=== PATIENT | female | born 1945 | race Caucasian/White ===

== ENCOUNTER 2017-05-06 07:27 | Outpatient (CLI) | payer OTHER ==
[~2017-05-06] VITALS: Ht 163.8 cm; Wt 108.0 kg
[~2017-05-06 07:27] MED LIST: ATOR1TAB19 PO; CALC1TAB42 PO; HYDR-3713 PO; LISI20TA PO; LOPR1TAB6 PO; MAGN500T5 PO; METH1TAB40 PO; MULT1TAB10 PO; TYLE1TAB5 PO; VENL75TA2 PO; VITA500046 PO; VITA500T53 PO
[2017-05-06] MEDS ORDERED: NS 1,000 ML IV ONE (07:45)
--- NOTE | 2017-05-06 09:12 | ROOR ---
Patient Name: Starla Garcia Procedure Date: 05/06/2017 8:52 AM Date of : 1945 Age: 72 Room: [facility] Gender: Female Note Status: Finalized Procedure: Colonoscopy Indications: High risk colon cancer surveillance: Personal history of colonic polyps Providers: Dhiraj CAMARILLO MD Referring MD: PRETTY ORTEGA NP Requesting Provider: Medicines: Monitored Anesthesia Care Complications: No immediate complications. Procedure: Pre-Anesthesia Assessment: - The heart rate, respiratory rate, oxygen saturations, blood pressure, adequacy of pulmonary ventilation, and response to care were monitored throughout the procedure. The Colonoscope was introduced through the anus and advanced to the cecum, identified by appendiceal orifice and ileocecal valve. The colonoscopy was performed without difficulty. The patient tolerated the procedure well. The quality of the bowel preparation was good. Findings: The perianal and digital rectal examinations were normal. (Exam: Complete, Prep: Good or Excellent.) Five sessile polyps were found in the sigmoid colon and distal descending colon. The polyps were 4 to 7 mm in size. These polyps were removed with a cold snare. Resection and retrieval were complete. Multiple medium-mouthed diverticula were found in the sigmoid colon. Small Internal Hemorrhoids. The exam was otherwise without abnormality on direct and retroflexion views. Impression: - Five 4 to 7 mm polyps in the sigmoid colon and in the distal descending colon, removed with a cold snare. Resected and retrieved. - Mild diverticulosis in the sigmoid colon. - Small Internal Hemorrhoids. - The examination was otherwise normal on direct and retroflexion views. Recommendation: - Repeat colonoscopy in 3 years for surveillance. Dhiraj Camarillo MD Dhiraj CAMARILLO MD 05/06/2017 9:12:21 AM This report has been signed electronically. Number of Addenda: 0 Note Initiated On: 05/06/2017 8:52 AM Estimated Blood Loss: Estimated blood loss: none.
[2017-05-06 09:30] VITALS: BP 142/84
== END 2017-05-06 09:43 | disposition home or self-care (01) ==
LOC: M OPP 07:27
PROVIDERS: ATTEND Internal Medicine Gastroenterology
DX: D12.5 Benign neoplasm of sigmoid colon (principal); D12.2 Benign neoplasm of ascending colon; K64.8 Other hemorrhoids; I10 Essential (primary) hypertension; M54.9 Dorsalgia, unspecified; E78.5 Hyperlipidemia, unspecified; M19.90 Unspecified osteoarthritis, unspecified site; Z98.0 Intestinal bypass and anastomosis status; Z96.9 Presence of functional implant, unspecified; Z79.899 Other long term (current) drug therapy

== ENCOUNTER → 2017-11-14 | Outpatient (REF) | payer OTHER ==
[2017-11-14 17:01] LABS: FERRITIN 33 NG/ML (8-252); IRON (FE) 111 UG/DL (50-170); PERCENT SATURATION 27.3 % (13.2-45.0); TOTAL IRON BINDING CAPACITY 406 UG/DL (250-450)
[2017-11-14 21:19] LABS: FOLATE > 24.0 NG/ML; VITAMIN B12 LEVEL 1407 PG/ML
== END ==
LOC: M LAB REF 15:18
DX: Z98.84 Bariatric surgery status (principal)
CPT/HCPCS: 82746

== ENCOUNTER → 2018-11-20 | Outpatient (REF) | payer OTHER ==
[2018-11-20 12:38] LABS: FERRITIN 18 NG/ML (8-252); IRON (FE) 55 UG/DL (50-170); PERCENT SATURATION 15.4 % (13.2-45.0); TOTAL IRON BINDING CAPACITY 356 UG/DL (250-450)
[2018-11-20 12:41] LABS: VITAMIN B12 LEVEL 1737 PG/ML
[2018-11-20 12:54] LABS: FOLATE > 24.0 NG/ML
== END ==
LOC: M LAB REF 12:00
PROVIDERS: ATTEND Nurse Practitioner Family
DX: Z98.84 Bariatric surgery status (principal)

== ENCOUNTER → 2020-07-27 | Outpatient (CLI) | payer OTHER ==
[~2020-07-27] MED LIST changes: -LISI20TA PO; +LISI20TA35 PO; +MAGN1CAP PO; +MULTCAP PO; +VITA500T17 PO; -VITA500T53 PO
== END ==
LOC: M LABSMTC 08:40
PROVIDERS: ATTEND Anesthesiology
DX: Z01.812 Encounter for preprocedural laboratory examination (principal); Z20.828 Contact with and (suspected) exposure to other viral communicable diseases
CPT/HCPCS: C9803; U0003

== ENCOUNTER 2020-08-01 09:03 | Day surgery (SDC) | payer MEDICARE ==
[~2020-08-01] VITALS: Ht 162.6 cm; Wt 112.0 kg
[~2020-08-01 09:03] MED LIST changes: +LIDOCAINE 2% 100MG/5ML SDV (FOR ANES.) As Ordered ONE; +NS 1,000 ML IV ONE; +propofoL 200 MG/20 ML VIAL As Ordered ONE
--- NOTE | 2020-08-01 10:25 | ROOR ---
Patient Name: Starla Garcia Procedure Date: 08/01/2020 10:09 AM Date of : 1945 Age: 75 Room: [facility] Gender: Female Note Status: Finalized Procedure: Colonoscopy Indications: High risk colon cancer surveillance: Personal history of colonic polyps, Last colonoscopy: May 2017 Providers: Dhiraj CAMARILLO MD Referring MD: Gloria Brasher NP Requesting Provider: Medicines: Monitored Anesthesia Care Complications: No immediate complications. Procedure: Pre-Anesthesia Assessment: - The heart rate, respiratory rate, oxygen saturations, blood pressure, adequacy of pulmonary ventilation, and response to care were monitored throughout the procedure. The Colonoscope was introduced through the anus and advanced to the terminal ileum, with identification of the appendiceal orifice and IC valve. The colonoscopy was performed without difficulty. The patient tolerated the procedure well. The quality of the bowel preparation was good. Findings: The perianal and digital rectal examinations were normal. Mild sigmoid diverticulosis and small internal hemorrhoids. The exam was otherwise without abnormality on direct and retroflexion views. Impression: - Mild sigmoid diverticulosis and small internal hemorrhoids. - The examination was otherwise normal on direct and retroflexion views. - No specimens collected. Recommendation: - Repeat colonoscopy in 5 years for surveillance. Dhiraj Camarillo MD Dhiraj CAMARILLO MD 08/01/2020 10:24:55 AM Electronically signed by hDiraj CAMARILLO MD Number of Addenda: 0 Note Initiated On: 08/01/2020 10:09 AM Estimated Blood Loss: Estimated blood loss: none.
[2020-08-01 11:09] VITALS: BP 145/77
== END 2020-08-01 11:07 | disposition home or self-care (01) ==
LOC: M OPP 09:03
PROVIDERS: ATTEND Internal Medicine Gastroenterology
DX: Z12.11 Encounter for screening for malignant neoplasm of colon (principal); Z86.010 Personal history of colon polyps; K57.30 Diverticulosis of large intestine without perforation or abscess without bleeding; K64.8 Other hemorrhoids; Z79.891 Long term (current) use of opiate analgesic; Z79.899 Other long term (current) drug therapy; Z98.84 Bariatric surgery status

== ENCOUNTER → 2020-12-05 | Outpatient (REF) | payer MEDICARE ==
[~2020-12-05] MED LIST changes: -LIDOCAINE 2% 100MG/5ML SDV (FOR ANES.) As Ordered ONE; +METH-1164 PO; -METH1TAB40 PO; -NS 1,000 ML IV ONE; -propofoL 200 MG/20 ML VIAL As Ordered ONE
[2020-12-05 13:01] LABS: FERRITIN 24 NG/ML (8-252); IRON (FE) 46 UG/DL (50-170); PERCENT SATURATION 11.6 % (13.2-45.0); TOTAL IRON BINDING CAPACITY 397 UG/DL (250-450)
[2020-12-05 13:08] LABS: FOLATE > 24.0 NG/ML; VITAMIN B12 LEVEL > 2000 PG/ML
== END ==
LOC: M LAB REF 12:27
PROVIDERS: ATTEND Internal Medicine
DX: Z98.84 Bariatric surgery status (principal)

== ENCOUNTER → 2021-06-25 | Outpatient (CLI) | payer MEDICARE | LOC: M PAIN 09:00 | PROVIDERS: ATTEND Anesthesiology | DX: M47.816 Spondylosis without myelopathy or radiculopathy, lumbar region (principal); I10 Essential (primary) hypertension; E78.00 Pure hypercholesterolemia, unspecified; F32.9 Major depressive disorder, single episode, unspecified; K21.9 Gastro-esophageal reflux disease without esophagitis; F41.9 Anxiety disorder, unspecified; M54.2 Cervicalgia; Z79.891 Long term (current) use of opiate analgesic; Z79.899 Other long term (current) drug therapy ==

== ENCOUNTER → 2021-07-17 | Outpatient (CLI) | payer MEDICARE ==
--- NOTE | 2021-07-17 22:21 | REPVR ---
PROCEDURE INFORMATION: Exam: MR Lumbar Spine Without Contrast Exam date and time: 07/17/2021 2:51 PM Age: 76 years old Clinical indication: Low back pain; Additional info: Lumbar facet arthropathy TECHNIQUE: Imaging protocol: Multiplanar magnetic resonance images of the lumbar spine without intravenous contrast. COMPARISON: No relevant prior studies available. FINDINGS: Vertebral body heights are maintained. Multilevel Modic type 1 edematous degenerative endplate change. Stepwise 0.6 grade 1 anterolisthesis of L3 on L4 and L4 on L5.. No cord compression. No abnormal cord signal. Conus medullaris terminates at the L1 level. Paravertebral soft tissues are unremarkable. L1-L2: Broad-based disc bulge and facet hypertrophy cause mild to moderate bilateral foraminal narrowing. Mild canal narrowing. L2-L3: Broad-based disc bulge and facet hypertrophy cause mild canal narrowing and moderate bilateral foraminal narrowing. L3-L4: Combination of anterolisthesis, broad-based disc bulge, and facet hypertrophy cause moderate to severe canal narrowing with crowding of the cauda equina. Moderate bilateral foraminal narrowing. L4-L5: Combination of anterolisthesis, broad-based disc bulge, and facet hypertrophy cause moderate to severe canal narrowing with crowding of the cauda equina. Moderate left and severe right foraminal narrowing with compression of the exiting right L4 nerve root. L5-S1: Broad-based disc bulge and facet hypertrophy cause mild canal narrowing with effacement of the left lateral recess. Moderate right and moderate to severe left foraminal narrowing. 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 Electronically signed by: Dawit Waldron On 07/17/2021 22:20:35 PM
== END ==
LOC: M PLAIMG 13:48
PROVIDERS: ATTEND Anesthesiology
DX: M47.816 Spondylosis without myelopathy or radiculopathy, lumbar region (principal)

== ENCOUNTER → 2021-08-14 | Outpatient (CLI) | payer MEDICARE | LOC: M PAIN 11:15 | PROVIDERS: ATTEND Anesthesiology | DX: M51.16 Intervertebral disc disorders with radiculopathy, lumbar region (principal); I10 Essential (primary) hypertension; E78.00 Pure hypercholesterolemia, unspecified; F32.9 Major depressive disorder, single episode, unspecified; K21.9 Gastro-esophageal reflux disease without esophagitis; F41.9 Anxiety disorder, unspecified; M54.2 Cervicalgia; Z79.891 Long term (current) use of opiate analgesic; Z79.899 Other long term (current) drug therapy ==

== ENCOUNTER → 2021-10-21 | Outpatient (CLI) | payer MEDICARE | LOC: M WHC 12:15 | PROVIDERS: ATTEND Registered Nurse | DX: Z12.31 Encounter for screening mammogram for malignant neoplasm of breast (principal); M81.0 Age-related osteoporosis without current pathological fracture; Z78.0 Asymptomatic menopausal state ==

== ENCOUNTER → 2021-10-28 | Outpatient (CLI) | payer MEDICARE | LOC: M LABSMTC 11:41 | PROVIDERS: ATTEND Anesthesiology | DX: Z01.818 Encounter for other preprocedural examination (principal); Z11.52 Encounter for screening for COVID-19 ==

== ENCOUNTER → 2021-11-02 | Outpatient (CLI) | payer MEDICARE | LOC: M PAIN 14:20 | PROVIDERS: ATTEND Anesthesiology | DX: M51.16 Intervertebral disc disorders with radiculopathy, lumbar region (principal); Z86.59 Personal history of other mental and behavioral disorders; Z96.653 Presence of artificial knee joint, bilateral; Z98.84 Bariatric surgery status; Z79.899 Other long term (current) drug therapy | CPT/HCPCS: 62323; J1030; Q9967 ==

== ENCOUNTER → 2021-12-09 | Outpatient (CLI) | payer MEDICARE | LOC: M PAIN 10:45 | PROVIDERS: ATTEND Anesthesiology | DX: M48.061 Spinal stenosis, lumbar region without neurogenic claudication (principal); M48.062 Spinal stenosis, lumbar region with neurogenic claudication; I10 Essential (primary) hypertension; E78.00 Pure hypercholesterolemia, unspecified; F32.A Depression, unspecified; K21.9 Gastro-esophageal reflux disease without esophagitis; F41.9 Anxiety disorder, unspecified; Z96.653 Presence of artificial knee joint, bilateral; Z98.84 Bariatric surgery status; Z79.891 Long term (current) use of opiate analgesic; Z79.899 Other long term (current) drug therapy ==

== ENCOUNTER → 2021-12-14 | Outpatient (REF) | payer MEDICARE ==
[2021-12-14 13:09] LABS: FERRITIN 40 NG/ML (8-252); IRON (FE) 91 UG/DL (50-170); PERCENT SATURATION 25.3 % (13.2-45.0); TOTAL IRON BINDING CAPACITY 360 UG/DL (250-450)
[2021-12-14 13:15] LABS: FOLATE 15.1 NG/ML; TOTAL 25(OH) VITAMIN D 52.5 NG/ML (30.0-100.0); VITAMIN B12 LEVEL > 2000 PG/ML
== END ==
LOC: M LAB REF 12:16
PROVIDERS: ATTEND Registered Nurse
DX: Z98.84 Bariatric surgery status (principal)

== ENCOUNTER → 2022-01-21 | Outpatient (CLI) | payer MEDICARE | LOC: M PAIN 11:45 | PROVIDERS: ATTEND Anesthesiology | DX: M48.062 Spinal stenosis, lumbar region with neurogenic claudication (principal); M51.16 Intervertebral disc disorders with radiculopathy, lumbar region; G89.29 Other chronic pain; Z86.59 Personal history of other mental and behavioral disorders; Z96.653 Presence of artificial knee joint, bilateral; Z98.84 Bariatric surgery status; Z79.899 Other long term (current) drug therapy ==

== ENCOUNTER → 2022-03-04 | Outpatient (CLI) | payer MEDICARE | LOC: M PAIN 10:00 | PROVIDERS: ATTEND Anesthesiology | DX: M48.062 Spinal stenosis, lumbar region with neurogenic claudication (principal); M51.16 Intervertebral disc disorders with radiculopathy, lumbar region; I10 Essential (primary) hypertension; E78.00 Pure hypercholesterolemia, unspecified; F32.A Depression, unspecified; K21.9 Gastro-esophageal reflux disease without esophagitis; M54.2 Cervicalgia; F41.9 Anxiety disorder, unspecified; Z79.891 Long term (current) use of opiate analgesic; Z79.899 Other long term (current) drug therapy ==

== ENCOUNTER → 2022-10-10 | Outpatient (CLI) | payer MEDICARE | LOC: M LABSMTC 09:47 | PROVIDERS: ATTEND Anesthesiology | DX: Z01.812 Encounter for preprocedural laboratory examination (principal); Z20.822 Contact with and (suspected) exposure to COVID-19 ==

== ENCOUNTER 2022-10-12 11:16 | Emergency (ER) | payer MEDICARE ==
[~2022-10-12] VITALS: Ht 162.6 cm; Wt 109.1 kg
[~2022-10-12 11:16] MED LIST changes: -AMLO10TA PO; -BUPIVACAINE HCL 0.25% 30ML VIAL As Ordered ONE; -CHLO125TA PO; -ISOVUE-M 300 61% 15ML VIAL As Ordered ONE; -LIDOCAINE 1% SDV 30ML VIAL As Ordered ONE; -NORCO, ANEXSIA 5/325MG TABLET (HYDROcodone/ACETAMINOPHEN) As Ordered ONE; -SPIR-10 PO; -diazePAM 5MG TABLET As Ordered ONE
[2022-10-12 13:15] LABS: APPEARANCE, URINE MANUAL CLEAR (CLEAR); BILIRUBIN, URINE MANUAL NEGATIVE (NEGATIVE); BLOOD URINE MANUAL NEGATIVE (NEGATIVE); COLOR, URINE MANUAL YELLOW (YELLOW); GLUCOSE, URINE (UA) MANUAL NEGATIVE (NEGATIVE); KETONE, URINE MANUAL NEGATIVE (NEGATIVE); LEUKOCYTE ESTERASE, URINE MAN NEGATIVE (NEGATIVE); NITRITE, URINE MANUAL NEGATIVE (NEGATIVE); PROTEIN, URINE MANUAL NEGATIVE (NEGATIVE); SPECIFIC GRAVITY,URINE MANUAL 1.015 (1.002-1.035); UROBILINOGEN, URINE MANUAL NORMAL (NORMAL)
[2022-10-12 13:18] LABS: BASO % 0.3 % (0.0-1.0); EOS % 0.6 % (0.0-3.0); HEMATOCRIT 45.4 % (36.0-47.0); HEMOGLOBIN 14.5 g/dl (12.0-15.5); LYMPH # 0.6 10^3/uL (1.5-5.0); MEAN CORPUSCULAR HEMOGLOBIN 32.7 pg (27.0-33.0); MEAN CORPUSCULAR HGB CONC 31.9 g/dl (32.0-36.5); MEAN CORPUSCULAR VOLUME 102.5 fl (80.0-96.0); MONO # 0.1 10^3/uL (0.0-0.8); MONO % 1.3 % (2.0-8.0); NEUTROPHILS # 5.4 10^3/uL (1.5-8.5); NEUTROPHILS % 87.5 % (36.0-66.0); PLATELET COUNT, AUTOMATED 260 10^3/uL (150-450); RED BLOOD COUNT 4.43 10^6/uL (4.00-5.40); WHITE BLOOD COUNT 6.2 10^3/uL (4.0-10.0)
[2022-10-12 13:41] LABS: ALBUMIN 4.1 G/DL (3.2-5.2); BILIRUBIN,DIRECT 0.2 MG/DL (<0.4); BILIRUBIN,TOTAL 0.5 MG/DL (0.3-1.2); TOTAL PROTEIN 6.8 G/DL (5.7-8.2)
[2022-10-12] MEDS ORDERED: ACETAMINOPHEN TAB 650MG DOSE (2X325MG) PO ONE (13:45)
[2022-10-12 14:05] LABS: ERYTHROCYTE SEDIMENTATION RATE 25 mm/hr (0-30)
[2022-10-12] MEDS ORDERED: FUROSEMIDE 40MG/4ML VIAL IV ONE (14:50)
[2022-10-12] MEDS ORDERED: SPIR-10 PO (16:21)
[2022-10-12] MEDS ORDERED: AMLO10TA PO (16:21)
[2022-10-12] MEDS ORDERED: CHLO125TA PO (16:21)
[2022-10-12 16:29] VITALS: BP 196/106
== END 2022-10-12 16:40 | disposition home or self-care (01) ==
LOC: M ED 11:16
DX: I10 Essential (primary) hypertension (principal); E78.5 Hyperlipidemia, unspecified; M51.36 Other intervertebral disc degeneration, lumbar region; Z79.899 Other long term (current) drug therapy
CPT/HCPCS: 36415; 64483; 64484; 70450; 80047; 80076; 81002; 85025; 85652; 93005; 93041; 96374; 99285; J1100; J1940; Q9967

== ENCOUNTER → 2022-10-12 | Outpatient (CLI) | payer MEDICARE ==
[~2022-10-12] MED LIST changes: +AMLO10TA PO; +BUPIVACAINE HCL 0.25% 30ML VIAL As Ordered ONE; +CHLO125TA PO; +ISOVUE-M 300 61% 15ML VIAL As Ordered ONE; +LIDOCAINE 1% SDV 30ML VIAL As Ordered ONE; +NORCO, ANEXSIA 5/325MG TABLET (HYDROcodone/ACETAMINOPHEN) As Ordered ONE; +SPIR-10 PO; +diazePAM 5MG TABLET As Ordered ONE
== END ==
LOC: M PAIN 08:00
PROVIDERS: ATTEND Anesthesiology
DX: M48.062 Spinal stenosis, lumbar region with neurogenic claudication (principal); M51.16 Intervertebral disc disorders with radiculopathy, lumbar region; I10 Essential (primary) hypertension; E78.00 Pure hypercholesterolemia, unspecified; F32.A Depression, unspecified; K21.9 Gastro-esophageal reflux disease without esophagitis; M54.2 Cervicalgia; F41.9 Anxiety disorder, unspecified; Z96.653 Presence of artificial knee joint, bilateral; Z98.84 Bariatric surgery status; Z79.891 Long term (current) use of opiate analgesic; Z79.899 Other long term (current) drug therapy

== ENCOUNTER → 2022-11-11 | Outpatient (CLI) | payer MEDICARE ==
[~2022-11-11] MED LIST changes: +AMLO10TA PO; +CHLO125TA PO; +SPIR-10 PO
== END ==
LOC: M PAIN 11:00
PROVIDERS: ATTEND Anesthesiology
DX: G89.29 Other chronic pain (principal); M47.816 Spondylosis without myelopathy or radiculopathy, lumbar region; I10 Essential (primary) hypertension; E78.00 Pure hypercholesterolemia, unspecified; M19.90 Unspecified osteoarthritis, unspecified site; F32.A Depression, unspecified; K21.9 Gastro-esophageal reflux disease without esophagitis; M54.2 Cervicalgia; F41.9 Anxiety disorder, unspecified; Z96.653 Presence of artificial knee joint, bilateral; Z98.84 Bariatric surgery status; Z79.891 Long term (current) use of opiate analgesic; Z79.899 Other long term (current) drug therapy
CPT/HCPCS: 76000; G0463

== ENCOUNTER → 2022-12-01 | Outpatient (CLI) | payer MEDICARE | LOC: M RAD 09:54 | PROVIDERS: ATTEND Anesthesiology | DX: G89.29 Other chronic pain (principal); M47.816 Spondylosis without myelopathy or radiculopathy, lumbar region ==

== ENCOUNTER → 2022-12-15 | Outpatient (REF) | payer MEDICARE ==
[2022-12-15 13:01] LABS: TOTAL 25(OH) VITAMIN D 52.5 NG/ML (20.0-100.0)
[2022-12-15 13:02] LABS: PERCENT SATURATION 41.6 % (13.2-45.0)
== END ==
LOC: M LAB REF 12:12
PROVIDERS: ATTEND Internal Medicine
DX: Z98.84 Bariatric surgery status (principal)

== ENCOUNTER → 2022-12-24 | Outpatient (CLI) | payer MEDICARE | LOC: M LABSMTC 11:00 | PROVIDERS: ATTEND Anesthesiology | DX: Z01.818 Encounter for other preprocedural examination (principal); Z11.52 Encounter for screening for COVID-19 ==

== ENCOUNTER → 2022-12-28 | Outpatient (CLI) | payer MEDICARE ==
[~2022-12-28] MED LIST changes: +BUPIVACAINE HCL 0.25% 30ML VIAL As Ordered ONE; +ISOVUE-M 300 61% 15ML VIAL As Ordered ONE; +LIDOCAINE 1% SDV 30ML VIAL As Ordered ONE
== END ==
LOC: M PAIN 09:15
PROVIDERS: ATTEND Anesthesiology
DX: M47.816 Spondylosis without myelopathy or radiculopathy, lumbar region (principal); I10 Essential (primary) hypertension; E78.00 Pure hypercholesterolemia, unspecified; F32.A Depression, unspecified; K21.9 Gastro-esophageal reflux disease without esophagitis; M54.2 Cervicalgia; F41.9 Anxiety disorder, unspecified; Z79.891 Long term (current) use of opiate analgesic; Z79.899 Other long term (current) drug therapy
CPT/HCPCS: 64493; 64494; Q9967

== ENCOUNTER → 2023-01-06 | Outpatient (CLI) | payer MEDICARE ==
[~2023-01-06] MED LIST changes: -BUPIVACAINE HCL 0.25% 30ML VIAL As Ordered ONE; -ISOVUE-M 300 61% 15ML VIAL As Ordered ONE; -LIDOCAINE 1% SDV 30ML VIAL As Ordered ONE
== END ==
LOC: M PAIN 09:15
PROVIDERS: ATTEND Anesthesiology
DX: G89.29 Other chronic pain (principal); M47.816 Spondylosis without myelopathy or radiculopathy, lumbar region; I10 Essential (primary) hypertension; E78.00 Pure hypercholesterolemia, unspecified; F32.A Depression, unspecified; K21.9 Gastro-esophageal reflux disease without esophagitis; M19.90 Unspecified osteoarthritis, unspecified site; M54.2 Cervicalgia; Z96.653 Presence of artificial knee joint, bilateral; Z79.891 Long term (current) use of opiate analgesic; Z79.899 Other long term (current) drug therapy

== ENCOUNTER → 2023-01-18 | Outpatient (REF) | payer MEDICARE | LOC: M LAB REF 12:07 | PROVIDERS: ATTEND Internal Medicine | DX: M19.90 Unspecified osteoarthritis, unspecified site (principal) ==

== ENCOUNTER → 2023-02-02 | Outpatient (CLI) | payer MEDICARE | LOC: M PAIN 14:45 | PROVIDERS: ATTEND Anesthesiology | DX: M43.06 Spondylolysis, lumbar region (principal); G89.29 Other chronic pain; I10 Essential (primary) hypertension; Z86.59 Personal history of other mental and behavioral disorders; Z96.653 Presence of artificial knee joint, bilateral; Z98.84 Bariatric surgery status; Z79.899 Other long term (current) drug therapy ==

== ENCOUNTER → 2023-03-16 | Outpatient (CLI) | payer MEDICARE | LOC: M PAIN 15:45 | PROVIDERS: ATTEND Anesthesiology | DX: M48.062 Spinal stenosis, lumbar region with neurogenic claudication (principal); I10 Essential (primary) hypertension; E78.00 Pure hypercholesterolemia, unspecified; F32.A Depression, unspecified; M19.90 Unspecified osteoarthritis, unspecified site; K21.9 Gastro-esophageal reflux disease without esophagitis; F41.9 Anxiety disorder, unspecified; Z79.891 Long term (current) use of opiate analgesic; Z79.899 Other long term (current) drug therapy ==

== ENCOUNTER → 2023-03-31 | Outpatient (CLI) | payer MEDICARE ==
[~2023-03-31] MED LIST changes: +ISOVUE-M 300 61% 15ML VIAL As Ordered ONE; +LIDOCAINE 1% SDV 30ML VIAL As Ordered ONE
== END ==
LOC: M PAIN 09:30
PROVIDERS: ATTEND Anesthesiology
DX: M51.16 Intervertebral disc disorders with radiculopathy, lumbar region (principal); M47.816 Spondylosis without myelopathy or radiculopathy, lumbar region; G89.29 Other chronic pain; I10 Essential (primary) hypertension; E78.00 Pure hypercholesterolemia, unspecified; M19.90 Unspecified osteoarthritis, unspecified site; F32.A Depression, unspecified; K21.9 Gastro-esophageal reflux disease without esophagitis; M54.2 Cervicalgia; F41.9 Anxiety disorder, unspecified; Z79.891 Long term (current) use of opiate analgesic; Z79.899 Other long term (current) drug therapy
CPT/HCPCS: 64493; 64494; Q9967

== ENCOUNTER → 2023-05-19 | Outpatient (CLI) | payer MEDICARE ==
[~2023-05-19] MED LIST changes: -ISOVUE-M 300 61% 15ML VIAL As Ordered ONE; -LIDOCAINE 1% SDV 30ML VIAL As Ordered ONE
== END ==
LOC: M PAIN 15:15
PROVIDERS: ATTEND Anesthesiology
DX: M43.06 Spondylolysis, lumbar region (principal); G89.29 Other chronic pain; I10 Essential (primary) hypertension; Z86.59 Personal history of other mental and behavioral disorders; Z96.653 Presence of artificial knee joint, bilateral; Z98.84 Bariatric surgery status; Z79.899 Other long term (current) drug therapy

== ENCOUNTER → 2023-07-19 | Outpatient (CLI) | payer MEDICARE ==
[~2023-07-19] MED LIST changes: +LIDOCAINE 1% SDV 30ML VIAL As Ordered ONE; +NORCO, ANEXSIA 5/325MG TABLET (HYDROcodone/ACETAMINOPHEN) As Ordered ONE; +dexAMETHasone 10MG/1ML VIAL PRES.FREE As Ordered ONE; +diazePAM 5MG TABLET As Ordered ONE
== END ==
LOC: M PAIN 12:00
PROVIDERS: ATTEND Anesthesiology
DX: M47.816 Spondylosis without myelopathy or radiculopathy, lumbar region (principal); I10 Essential (primary) hypertension; E78.00 Pure hypercholesterolemia, unspecified; M19.90 Unspecified osteoarthritis, unspecified site; F32.A Depression, unspecified; K21.9 Gastro-esophageal reflux disease without esophagitis; M54.2 Cervicalgia; F41.9 Anxiety disorder, unspecified; Z79.891 Long term (current) use of opiate analgesic; Z79.899 Other long term (current) drug therapy
CPT/HCPCS: 64635; 64636; J0665; J1100

== ENCOUNTER → 2023-09-07 | Outpatient (CLI) | payer MEDICARE ==
[~2023-09-07] MED LIST changes: -LIDOCAINE 1% SDV 30ML VIAL As Ordered ONE; -NORCO, ANEXSIA 5/325MG TABLET (HYDROcodone/ACETAMINOPHEN) As Ordered ONE; -dexAMETHasone 10MG/1ML VIAL PRES.FREE As Ordered ONE; -diazePAM 5MG TABLET As Ordered ONE
== END ==
LOC: M PAIN 09:15
PROVIDERS: ATTEND Anesthesiology
DX: M47.816 Spondylosis without myelopathy or radiculopathy, lumbar region (principal); G89.29 Other chronic pain; I10 Essential (primary) hypertension; E78.00 Pure hypercholesterolemia, unspecified; F32.A Depression, unspecified; K21.9 Gastro-esophageal reflux disease without esophagitis; M54.2 Cervicalgia; F41.9 Anxiety disorder, unspecified; Z79.891 Long term (current) use of opiate analgesic; Z79.899 Other long term (current) drug therapy

== ENCOUNTER → 2023-10-20 | Outpatient (CLI) | payer MEDICARE | LOC: M PAIN 14:00 | PROVIDERS: ATTEND Anesthesiology | DX: M47.816 Spondylosis without myelopathy or radiculopathy, lumbar region (principal); G89.29 Other chronic pain; M54.50 Low back pain, unspecified; I10 Essential (primary) hypertension; E78.00 Pure hypercholesterolemia, unspecified; F32.A Depression, unspecified; K21.9 Gastro-esophageal reflux disease without esophagitis; M54.2 Cervicalgia; F41.9 Anxiety disorder, unspecified; Z79.891 Long term (current) use of opiate analgesic; Z79.899 Other long term (current) drug therapy ==

== ENCOUNTER → 2023-10-24 | Outpatient (CLI) | payer MEDICARE | LOC: M EKG 10:40 | PROVIDERS: ATTEND Internal Medicine | DX: R00.2 Palpitations (principal) ==

== ENCOUNTER → 2023-11-09 | Outpatient (CLI) | payer MEDICARE | LOC: M CARPUL 10:28 | PROVIDERS: ATTEND Internal Medicine | DX: R01.1 Cardiac murmur, unspecified (principal) ==

== ENCOUNTER → 2023-12-14 | Outpatient (CLI) | payer MEDICARE | LOC: M PAIN 11:30 | PROVIDERS: ATTEND Anesthesiology | DX: M47.816 Spondylosis without myelopathy or radiculopathy, lumbar region (principal); Z79.891 Long term (current) use of opiate analgesic; G89.29 Other chronic pain; M54.50 Low back pain, unspecified; I10 Essential (primary) hypertension; E78.00 Pure hypercholesterolemia, unspecified; F32.A Depression, unspecified; K21.9 Gastro-esophageal reflux disease without esophagitis; M54.2 Cervicalgia; F41.9 Anxiety disorder, unspecified; Z79.899 Other long term (current) drug therapy; Z96.653 Presence of artificial knee joint, bilateral ==

== ENCOUNTER → 2023-12-29 | Outpatient (REF) | payer MEDICARE ==
[2023-12-29 14:05] LABS: FOLATE > 24.0 NG/ML (>5.4); TOTAL 25(OH) VITAMIN D 54.1 NG/ML (20.0-100.0)
[2023-12-29 14:06] LABS: FERRITIN 52.7 NG/ML (7.3-270.7)
[2023-12-29 14:08] LABS: VITAMIN B12 LEVEL > 2000 PG/ML (211-911)
== END ==
LOC: M LAB REF 13:10
PROVIDERS: ATTEND Internal Medicine
DX: Z98.84 Bariatric surgery status (principal); D50.9 Iron deficiency anemia, unspecified

== ENCOUNTER → 2024-01-26 | Outpatient (CLI) | payer MEDICARE | LOC: M WHC 13:15 | PROVIDERS: ATTEND Internal Medicine | DX: Z12.31 Encounter for screening mammogram for malignant neoplasm of breast (principal); M85.89 Other specified disorders of bone density and structure, multiple sites; R92.323 Mammographic fibroglandular density, bilateral breasts ==

== ENCOUNTER → 2024-02-13 | Outpatient (CLI) | payer MEDICARE | LOC: M PAIN 09:30 | PROVIDERS: ATTEND Nurse Practitioner Family | DX: M47.816 Spondylosis without myelopathy or radiculopathy, lumbar region (principal); G89.29 Other chronic pain; I10 Essential (primary) hypertension; E78.00 Pure hypercholesterolemia, unspecified; F32.A Depression, unspecified; K21.9 Gastro-esophageal reflux disease without esophagitis; F41.9 Anxiety disorder, unspecified; M19.90 Unspecified osteoarthritis, unspecified site; Z79.891 Long term (current) use of opiate analgesic; Z79.899 Other long term (current) drug therapy ==

== ENCOUNTER → 2024-03-23 | Outpatient (CLI) | payer MEDICARE | LOC: M EKG 10:46 | PROVIDERS: ATTEND Internal Medicine Cardiovascular Disease | DX: R42 Dizziness and giddiness (principal); R00.2 Palpitations; I44.0 Atrioventricular block, first degree ==

== ENCOUNTER → 2024-03-28 | Outpatient (CLI) | payer MEDICARE | LOC: M PAIN 11:15 | PROVIDERS: ATTEND Anesthesiology | DX: M47.816 Spondylosis without myelopathy or radiculopathy, lumbar region (principal); G89.29 Other chronic pain; M54.50 Low back pain, unspecified; I10 Essential (primary) hypertension; E78.00 Pure hypercholesterolemia, unspecified; F32.A Depression, unspecified; K21.9 Gastro-esophageal reflux disease without esophagitis; M54.2 Cervicalgia; F41.9 Anxiety disorder, unspecified; Z79.891 Long term (current) use of opiate analgesic; Z79.899 Other long term (current) drug therapy | CPT/HCPCS: 76000; G0463 ==

== ENCOUNTER → 2024-05-09 | Outpatient (CLI) | payer MEDICARE | LOC: M PLAIMG 08:40 | PROVIDERS: ATTEND Anesthesiology | DX: M48.062 Spinal stenosis, lumbar region with neurogenic claudication (principal); M47.896 Other spondylosis, lumbar region; M51.86 Other intervertebral disc disorders, lumbar region ==

== ENCOUNTER → 2024-05-23 | Outpatient (CLI) | payer MEDICARE | LOC: M PAIN 10:30 | PROVIDERS: ATTEND Anesthesiology | DX: M54.50 Low back pain, unspecified (principal); M79.10 Myalgia, unspecified site; M79.18 Myalgia, other site; G89.29 Other chronic pain; I10 Essential (primary) hypertension; E78.00 Pure hypercholesterolemia, unspecified; M19.90 Unspecified osteoarthritis, unspecified site; F32.A Depression, unspecified; K21.9 Gastro-esophageal reflux disease without esophagitis; M54.2 Cervicalgia; F41.9 Anxiety disorder, unspecified; Z79.891 Long term (current) use of opiate analgesic; Z79.899 Other long term (current) drug therapy ==

== ENCOUNTER → 2024-07-23 | Outpatient (CLI) | payer MEDICARE | LOC: M PAIN 10:45 | PROVIDERS: ATTEND Nurse Practitioner Family | DX: M79.18 Myalgia, other site (principal); Z79.891 Long term (current) use of opiate analgesic; G89.29 Other chronic pain; I10 Essential (primary) hypertension; E78.00 Pure hypercholesterolemia, unspecified; F32.A Depression, unspecified; K21.9 Gastro-esophageal reflux disease without esophagitis; M54.2 Cervicalgia; F41.9 Anxiety disorder, unspecified; Z79.899 Other long term (current) drug therapy ==

== ENCOUNTER → 2024-09-20 | Outpatient (CLI) | payer MEDICARE ==
[~2024-09-20] MED LIST changes: +TRIAMCINOLONE ACETONIDE SUSP 40MG/ML 1ML VIAL As Ordered ONE
== END ==
LOC: M PAIN 08:00
PROVIDERS: ATTEND Anesthesiology
DX: M79.18 Myalgia, other site (principal); G89.29 Other chronic pain; Z79.891 Long term (current) use of opiate analgesic; I10 Essential (primary) hypertension; E78.00 Pure hypercholesterolemia, unspecified; F32.A Depression, unspecified; K21.9 Gastro-esophageal reflux disease without esophagitis; M54.2 Cervicalgia; F41.9 Anxiety disorder, unspecified; Z79.899 Other long term (current) drug therapy
CPT/HCPCS: 20552; J0665; J3301

== ENCOUNTER → 2024-11-22 | Outpatient (CLI) | payer MEDICARE ==
[~2024-11-22] MED LIST changes: -TRIAMCINOLONE ACETONIDE SUSP 40MG/ML 1ML VIAL As Ordered ONE
== END ==
LOC: M PAIN 09:15
PROVIDERS: ATTEND Nurse Practitioner Family
DX: M43.06 Spondylolysis, lumbar region (principal); M79.10 Myalgia, unspecified site; G89.29 Other chronic pain; Z79.899 Other long term (current) drug therapy; Z98.84 Bariatric surgery status

== ENCOUNTER → 2025-02-14 | Outpatient (CLI) | payer MEDICARE ==
[~2025-02-14] MED LIST changes: +AMLO-751 PO; -AMLO10TA PO
== END ==
LOC: M WHC 11:32
PROVIDERS: ATTEND Internal Medicine
DX: Z12.31 Encounter for screening mammogram for malignant neoplasm of breast (principal); R92.323 Mammographic fibroglandular density, bilateral breasts